=== PATIENT | female | born 1975 ===

== ENCOUNTER 2024-01-16 21:53 | Inpatient (IN) | payer OTHER ==
[~2024-01-16] VITALS: Ht 162.6 cm; Wt 46.5 kg
[2024-01-16 23:07] LABS: BASOPHILS ABSOLUTE AUTO 0.03 K/mm3 (0.00-0.23); BASOPHILS PERCENT AUTO 0 % (0-2); EOSINOPHILS ABSOLUTE AUTO 0.13 K/mm3 (0.00-0.68); EOSINOPHILS PERCENT AUTO 1 % (0-6); Hematocrit 36.3 % (33.0-51.0); Hemoglobin 11.8 g/dL (11.5-16.0); IMMATURE GRAN ABSOLUTE AUTO 0.07 K/mm3 (0.00-0.10); IMMATURE GRAN PERCENT AUTO 1 % (0-1); LYMPHOCYTES ABSOLUTE AUTO 1.47 K/mm3 (0.84-5.20); LYMPHOCYTES PERCENT AUTO 10 % (21-46); MONOCYTES ABSOLUTE AUTO 1.22 K/mm3 (0.16-1.47); MONOCYTES PERCENT AUTO 9 % (4-13); Mean Corpuscular HGB 28.4 pg (26.0-34.0); Mean Corpuscular HGB Conc 32.5 g/dL (31.5-36.5); Mean Corpuscular Volume 88 fL (80-100); Mean Platelet Volume 9.5 fL (9.1-12.4); NEUTROPHILS ABSOLUTE AUTO 11.19 K/mm3 (1.96-9.15); NEUTROPHILS PERCENT AUTO 79 % (41-73); Platelet Count 379 K/mm3 (150-400); RDW Coefficient Variation 19.7 % (11.7-14.2); RDW Standard Deviation 62.8 fL (35.1-46.3); Red Blood Cell Count 4.15 M/mm3 (3.80-5.20); White Blood Cell Count 14.11 K/mm3 (4.00-11.30)
[2024-01-16 23:31] LABS: Source, Urine Clean Catch
[2024-01-16 23:42] LABS: Albumin, Blood 3.4 g/dL (3.4-5.0); Albumin/Globulin Ratio 0.6 (0.8-1.8); Bilirubin, Total 0.5 mg/dL (0.1-1.0); Bun/Creatinine Ratio 13.2 (12.0-20.0); Calcium, Blood 8.5 mg/dL (8.5-10.1); Creatinine, Blood 1.9 mg/dL (0.40-1.00); Globulin, Blood 5.9 g/dL (2.2-4.0); Potassium, Blood 2.8 mmol/L (3.5-5.5); Total Protein, Blood 9.3 g/dL (6.4-8.2)
[2024-01-16] MEDS ORDERED: NS 1,000 ML IV SCH (23:50)
[2024-01-16 23:51] LABS: Appearance, Urine Hazy (Clear); Bilirubin, Urine Neg (Neg); Blood, Urine 5+ (Neg); Color, Urine Yellow (P-Yellow); Glucose Qualitative, Urine Neg (Neg); Ketones, Urine Neg (Neg); Leukocyte Esterase, Urine 3+ (Neg); Nitrite, Urine Neg (Neg); Protein, Urine 3+ (Neg); Specific Gravity, Urine 1.015 (1.003-1.022); Urobilinogen, Urine NORM (Normal)
[2024-01-17 00:12] LABS: Bacteria Many /hpf; Red Blood Cells, Urine 25-50 /hpf (0-2); Squamous Epithelial Cells Few /hpf (Few); White Blood Cells, Urine 50-100 /hpf (0-5)
[2024-01-17] MEDS ORDERED: Potassium Chloride 20 MEQ/15 ML UDC PO ONE (01:15)
[2024-01-17] MEDS ORDERED: CefTRIAXone Sodium 1,000 MG in NS 50 ML IV ONE (01:15)
[2024-01-17] MEDS ORDERED: Acetaminophen 325 MG TABLET PO PRN (02:20)
[2024-01-17] MEDS ORDERED: FentaNYL Citrate 50 MCG/ML 2 ML Injection IV PRN (02:20)
[2024-01-17] MEDS ORDERED: Ondansetron HCl 2 MG / ML 2ML Vial IV PRN (02:20)
[2024-01-17] MEDS ORDERED: Sodium Bicarb 8.4% Inj 75 MEQ in Sodium Chloride 0.45% 1,000 ML IV SCH (02:25)
[2024-01-17] MEDS ORDERED: SODBIC650 PO ×2 (04:20→12:28)
[2024-01-17] MEDS ORDERED: POTCIT10 PO (04:20)
[2024-01-17 04:21] VITALS: BP 111/83
[2024-01-17] MEDS ORDERED: GABA100 PO (04:21)
[2024-01-17] MEDS ORDERED: VENL25 PO (04:21)
[2024-01-17] MEDS ORDERED: FISH OIL 1,0001 EA10 PO (04:22)
[2024-01-17] MEDS ORDERED: ENSURE ORIGINA237 M1 PO (04:23)
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
[2024-01-17] MEDS ORDERED: Potassium Chloride 20 MEQ TabCR PO ONE ×2 (07:10→17:00)
[2024-01-17 07:41] VITALS: BP 121/82
[2024-01-17] MEDS ORDERED: Lactated Ringer's 1,000 ML IV SCH (08:00)
--- NOTE | 2024-01-17 08:15 | NUR ---
SPOKE WITH ER MINT MACHINE OPERATOR REGARDING THIS PATIENT, RECEIVED PERMISSION FROM THE PATIENT TO SPEAK WITH [employer] POLICE, PATIENT'S DOG IN HER CAR AT THE [employer], RECIEVED PERMISSION FROM THE PATIENT TO ALLOW THE [employer] POLICE IN HER CAR AND TO SEND THE DOG TO [facility] UNTIL SHE IS DISCHARGED, SPOKE WITH OFFICER TREVOR [phone] AND RELAYED THIS INFORMATION
[2024-01-17] MEDS ORDERED: Gabapentin 100 MG Cap PO SCH (09:00)
[2024-01-17] MEDS ORDERED: Enoxaparin 30 MG/0.3 ML SYR SC SCH (09:00)
[2024-01-17] MEDS ORDERED: Lactobacil 2-S.Thermo-Bifido 1 1 Cap PO SCH (09:00)
--- NOTE | 2024-01-17 11:07 | NUR ---
"Spiritual care | Pt. request/referral Pt. is resting in bed, but responds when I come to bedside. The pt. displays evidence of bein guarded at first, but as we considered matters of troy and belief, Pt. displayed evidence of trust. As this was an introductory visit, the census enumerator asked the Pt. if she felt safe here, and the Pt. verbalized that she did feel safe. Prayed with Pt. pt. verbalized gratitude for the spiritual care visit, and welcomed this census enumerator to return."
[2024-01-17 11:48] LABS: BASOPHILS ABSOLUTE AUTO 0.04 K/mm3 (0.00-0.23); BASOPHILS PERCENT AUTO 0 % (0-2); EOSINOPHILS ABSOLUTE AUTO 0.09 K/mm3 (0.00-0.68); EOSINOPHILS PERCENT AUTO 1 % (0-6); Hematocrit 34.3 % (33.0-51.0); Hemoglobin 11.1 g/dL (11.5-16.0); IMMATURE GRAN ABSOLUTE AUTO 0.05 K/mm3 (0.00-0.10); IMMATURE GRAN PERCENT AUTO 0 % (0-1); LYMPHOCYTES ABSOLUTE AUTO 1.24 K/mm3 (0.84-5.20); LYMPHOCYTES PERCENT AUTO 10 % (21-46); MONOCYTES ABSOLUTE AUTO 1.15 K/mm3 (0.16-1.47); MONOCYTES PERCENT AUTO 10 % (4-13); Mean Corpuscular HGB 28.6 pg (26.0-34.0); Mean Corpuscular HGB Conc 32.4 g/dL (31.5-36.5); Mean Corpuscular Volume 88 fL (80-100); Mean Platelet Volume 10.2 fL (9.1-12.4); NEUTROPHILS ABSOLUTE AUTO 9.33 K/mm3 (1.96-9.15); NEUTROPHILS PERCENT AUTO 78 % (41-73); Platelet Count 322 K/mm3 (150-400); RDW Coefficient Variation 19.9 % (11.7-14.2); RDW Standard Deviation 63.3 fL (35.1-46.3); Red Blood Cell Count 3.88 M/mm3 (3.80-5.20)
[2024-01-17 11:59] LABS: Albumin, Blood 2.7 g/dL (3.4-5.0); Albumin/Globulin Ratio 0.6 (0.8-1.8); Bilirubin, Total 0.3 mg/dL (0.1-1.0); Bun/Creatinine Ratio 13.6 (12.0-20.0); Calcium, Blood 7.8 mg/dL (8.5-10.1); Creatinine, Blood 1.62 mg/dL (0.40-1.00); Globulin, Blood 4.9 g/dL (2.2-4.0); Potassium, Blood 3.2 mmol/L (3.5-5.5); Total Protein, Blood 7.6 g/dL (6.4-8.2)
[2024-01-17] MEDS ORDERED: Bentyl10 MG PO (12:20)
[2024-01-17] MEDS ORDERED: SYMBICORT 80-10.2 GM PO (12:23)
[2024-01-17] MEDS ORDERED: LIDO700A20 TOP (12:23)
[2024-01-17] MEDS ORDERED: ALBU90OI INH (12:25)
[2024-01-17] MEDS ORDERED: B-100 COMPLEX100 MG PO (12:27)
[2024-01-17] MEDS ORDERED: POTA10T PO (12:27)
[2024-01-17] MEDS ORDERED: CALCIUM 600 +1 EA11 PO (12:29)
[2024-01-17] MEDS ORDERED: TIOT18 INH (12:29)
[2024-01-17] MEDS ORDERED: MULTIPLE VITAM1 EACH PO (12:31)
--- NOTE | 2024-01-17 12:32 | NUR ---
MEDICATION LIST FROM [facility] RECEIVED VIA FAX. UPDATED HOME MEDICATION LIST AND NOTIFIED
[2024-01-17] MEDS ORDERED: CefTRIAXone Sodium 1,000 MG in NS 100 ML IV SCH (15:00)
[2024-01-17 16:50] VITALS: BP 122/80
--- NOTE | 2024-01-17 19:55 | NUR ---
SHIFT SUMMARY: PT IS A/O X4, SBA/IND IN ROOM, PLEASANT AND COOPERATIVE WITH CARE. PT DOES BECOME TEARFUL AT TIMES WHEN DISCUSSING HER SITUATION. PT URINATING WELL THROUGHOUT THE SHIFT. NO CONCERNS FOR URINARY RETENTION. PT REPORTS FLANK PAIN TOLERABLE THROUGHOUT THE DAY. TYLENOL GIVEN FOR A HEADACHE THIS AFTERNOON WHICH WAS EFFECTIVE IN TREATING PAIN. PT CONTINUES TO HAVE IV FLUIDS LR AT 100 RUNNING. PT GIVEN DAUGHTERS PHONE NUMBER AND INSTRUCTED IF SHE WANTS DAUGHTER TO KNOW SHE IS AT HOSPITAL HOW TO CALL HER AND GIVE HER THE PASSWORD. PER PT SHE HAS NOT TALKED TO HER DAUGHTER IN SEVERAL MONTHS AND NOT SURE IF SHE WILL RESPOND. PT MADE AWARE HER DAUHTER WAS LOOKING FOR HER BUT WE COULD NOT LET HER KNOW SHE WAS HERE DUE TO HER CONFIDENTIAL STATUS. PT V/U. OFFERED ASSISTANCE IN NOTIFYING FAMILY OR FRIENDS AND SHE DECLINED OFFER.
[2024-01-17 20:54] VITALS: BP 114/74
[2024-01-18 04:49] VITALS: BP 126/86
[2024-01-18 05:11] LABS: BASOPHILS ABSOLUTE AUTO 0.04 K/mm3 (0.00-0.23); BASOPHILS PERCENT AUTO 0 % (0-2); EOSINOPHILS ABSOLUTE AUTO 0.09 K/mm3 (0.00-0.68); EOSINOPHILS PERCENT AUTO 1 % (0-6); Hemoglobin 11.1 g/dL (11.5-16.0); IMMATURE GRAN ABSOLUTE AUTO 0.05 K/mm3 (0.00-0.10); IMMATURE GRAN PERCENT AUTO 1 % (0-1); LYMPHOCYTES ABSOLUTE AUTO 1.46 K/mm3 (0.84-5.20); LYMPHOCYTES PERCENT AUTO 14 % (21-46); MONOCYTES ABSOLUTE AUTO 1.04 K/mm3 (0.16-1.47); MONOCYTES PERCENT AUTO 10 % (4-13); Mean Corpuscular HGB 28.5 pg (26.0-34.0); Mean Corpuscular HGB Conc 32.6 g/dL (31.5-36.5); Mean Corpuscular Volume 87 fL (80-100); Mean Platelet Volume 10.1 fL (9.1-12.4); NEUTROPHILS ABSOLUTE AUTO 7.57 K/mm3 (1.96-9.15); NEUTROPHILS PERCENT AUTO 74 % (41-73); Platelet Count 305 K/mm3 (150-400); RDW Standard Deviation 63.8 fL (35.1-46.3); Red Blood Cell Count 3.89 M/mm3 (3.80-5.20); White Blood Cell Count 10.25 K/mm3 (4.00-11.30)
[2024-01-18 05:32] LABS: Bun/Creatinine Ratio 11.9 (12.0-20.0); Calcium, Blood 7.5 mg/dL (8.5-10.1); Creatinine, Blood 1.59 mg/dL (0.40-1.00); Potassium, Blood 3.4 mmol/L (3.5-5.5)
--- NOTE | 2024-01-18 06:54 | NUR ---
SHIFT SUMMARY: NO ACUTE EVENTS. STATED PAIN WAS WELL CONTROLLED THIS SHIFT EVEN THOUGH NO PAIN MEDS GIVEN. NO EVENTS ON TELEMETRY, SR 80'S. GETTING UP TO BSC INDEPENDENTLY, EASIER FOR HER D/T URGENCY AND FREQUENCY. ON ROOM AIR; C/O FEELING SOB AND REQUESTED BREATHING TX, BUT LUNGS WERE CLEAR THROUGHOUT. POSSIBLY R/T ANXIETY SHE APPEARED TO BE ON THE VERGE OF TEARS AT THE TIME.
[2024-01-18 07:43] VITALS: BP 118/76
[2024-01-18] MEDS ORDERED: Albuterol HFA200 ACT/6.7 GM INH INH PRN (07:50)
[2024-01-18] MEDS ORDERED: Mometasone/Formoterol MDI 200/5 mcg 13 GM INH SCH (07:55)
[2024-01-18] MEDS ORDERED: Potassium Chloride 10 Meq Tablet SA PO SCH (08:00)
[2024-01-18] MEDS ORDERED: Tiotropium Bromide 2.5 MCG/ACT MIST INHAL (10 ACT/4 GM) INH SCH (08:00)
[2024-01-18] MEDS ORDERED: Lidocaine 4% 1 Patch TOP PRN (08:00)
[2024-01-18] MEDS ORDERED: Vitamin B Complex 1 EA Softgel PO SCH (09:00)
[2024-01-18] MEDS ORDERED: Multivitamins/Minerals TAB PO SCH (09:00)
[2024-01-18] MEDS ORDERED: Venlafaxine HCl 75 MG CapCR PO SCH (09:00)
[2024-01-18] MEDS ORDERED: Docosahexanoic Acid/EPA 1,000 MG CAP PO SCH (09:00)
[2024-01-18] MEDS ORDERED: Calcium/Vit D 600 mg-400 Unit Tab PO SCH (09:00)
[2024-01-18] MEDS ORDERED: Sodium Bicarbonate 650 MG Tab PO SCH (09:00)
--- NOTE | 2024-01-18 12:57 | NUR ---
THIS RN COVERING FOR PRIMARY RN FOR LUNCH BREAK
[2024-01-18 14:34] LABS: Bun/Creatinine Ratio 13.8 (12.0-20.0); Calcium, Blood 7.4 mg/dL (8.5-10.1); Creatinine, Blood 1.38 mg/dL (0.40-1.00); Potassium, Blood 2.9 mmol/L (3.5-5.5)
[2024-01-18 14:40] VITALS: BP 127/81
[2024-01-18] MEDS ORDERED: Potassium Chloride 20 MEQ TabCR PO ONE (15:00)
--- NOTE | 2024-01-18 17:45 | NUR ---
SHIFT SUMMARY: PATIENT A/OX4, CALM, PLEASANT AND COOPERATIVE c CARE. PATIENT DENIES CP/PRESSURE, N/V, DIZZINESS AND SOB. NO EVENTS ON TELE, SR HR IN THE 80'S BPM c OCCASIONAL BBB. 2.9 REPEAT K THIS PM, RECEIVED OT DOSE K PO AND SCHEDULED MEDS PER EMAR. PATIENT HAS GREAT APPETITE, CONT/INCON OF BOWEL/BLADDERS, AMBULATES TO BATHROOM INDEPENDENTLY T/O SHIFT. PATIENT HAD SHOWER AND LINEN CHANGED TODAY. VITAL SIGNS REVIEWED. CALL LIGHT IN REACH.
[2024-01-18 19:07] VITALS: BP 126/81
[2024-01-19 04:25] VITALS: BP 123/87
[2024-01-19 04:54] LABS: BASOPHILS ABSOLUTE AUTO 0.05 K/mm3 (0.00-0.23); BASOPHILS PERCENT AUTO 1 % (0-2); EOSINOPHILS ABSOLUTE AUTO 0.19 K/mm3 (0.00-0.68); EOSINOPHILS PERCENT AUTO 3 % (0-6); Hematocrit 32.6 % (33.0-51.0); Hemoglobin 10.8 g/dL (11.5-16.0); IMMATURE GRAN ABSOLUTE AUTO 0.04 K/mm3 (0.00-0.10); IMMATURE GRAN PERCENT AUTO 1 % (0-1); LYMPHOCYTES ABSOLUTE AUTO 1.72 K/mm3 (0.84-5.20); LYMPHOCYTES PERCENT AUTO 23 % (21-46); MONOCYTES ABSOLUTE AUTO 1.09 K/mm3 (0.16-1.47); MONOCYTES PERCENT AUTO 14 % (4-13); Mean Corpuscular HGB 28.3 pg (26.0-34.0); Mean Corpuscular HGB Conc 33.1 g/dL (31.5-36.5); Mean Corpuscular Volume 86 fL (80-100); Mean Platelet Volume 9.7 fL (9.1-12.4); NEUTROPHILS PERCENT AUTO 59 % (41-73); Platelet Count 306 K/mm3 (150-400); RDW Coefficient Variation 19.9 % (11.7-14.2); Red Blood Cell Count 3.81 M/mm3 (3.80-5.20); White Blood Cell Count 7.59 K/mm3 (4.00-11.30)
[2024-01-19 05:43] LABS: Bun/Creatinine Ratio 17.6 (12.0-20.0); Calcium, Blood 7.8 mg/dL (8.5-10.1); Creatinine, Blood 1.25 mg/dL (0.40-1.00); Potassium, Blood 3.2 mmol/L (3.5-5.5)
--- NOTE | 2024-01-19 07:32 | NUR ---
SHIFT SUMMARY: NO ACUTE EVENTS. C/O NAUSEA AND LOW BACK PAIN THIS MORNING; MEDICATED PER EMAR. NO EVENTS ON TELEMETRY, SR 70-80'S. GETTING UP TO BR, IS INDEPENDENT IN ROOM. SLEPT ALL NIGHT.
[2024-01-19 07:55] VITALS: BP 118/81
[2024-01-19] MEDS ORDERED: Potassium Chloride 20 MEQ TabCR PO ONE (08:00)
[2024-01-19 15:03] VITALS: BP 129/85
--- NOTE | 2024-01-19 16:44 | NUR ---
SHIFT SUMMARY: PATIENT A/OX4, PLEASANT AND COOPERATIVE c CARE. PATIENT DENIES CP/PRESSURE, SOB, N/V AND DIZZINESS. NO EVENT ON TELE, SR HR IN THE 70'S BPM. PATIENT HAS GREAT APPETITE, CONTINENT OF BOWEL/BLADDER, AMBULATES TO BATHROOM INDEPENDENTLY T/O SHIFT. PATIENT RECEIVED SCHEDULED MEDS PER EMAR. VITAL SIGNS REVIEWED. PATIENT REPORTS WOULD LIKE TO BE DISCHARGE TODAY, STATED "I'M WORRIED ABOUT MY APARTMENT IF I DON'T GET DISCHARGE TODAY MY [employer] WILL CHARGE ME THE FULL MONTH RENT OF $750 TOMORROW. MY SON WILL COME AND GET ME TODAY AND DROVE ME BACK TO [employer] [facility] SO, I CAN PACKED ALL MY BELONGINGS OUT MY APARTMENT. I DON'T HAVE A CHOICE." NOTIFIED DR. SNYDER c PATIENT REQUEST. DR. SNYDER CAME AND SPOKE c PATIENT. PER DR. SNYDER PATIENT IS NOT MEDICALLY STABLE TO GO HOME AND HE IS NOT DISCHARGING HER. PATIENT IS AWARE OF RISK AND BENIFITS OF LEAVING THE HOSPITAL, BUT STILL DETERMINE TO LEAVE AMA WHEN SON ARRIVED, PATIENT STATED MY SON WILL BE HERE AT "AROUND 6:00 PM OR SO." AMA FORMED SIGNED AND PLACED IN FRONT OF PATIENT CHART. PATIENT LAYING IN BED RESTING AWAITING FOR SON TO PICK HER UP. CALL LIGHT IN REACH.
--- NOTE | 2024-01-19 19:10 | NUR ---
OBTAINED REPORT FROM PAT LÓPEZ. PT SON CAME TO ROOM, PT LEFT AMA ON FOOT AT 1907. ALL BELONGINGS WITH PT. CHARGE NURSE NOTIFIED.
== END 2024-01-19 19:10 | disposition left against medical advice (07) | DRG 683 ==
LOC: ER 21:53 → MEDS 01-17 02:14
PROVIDERS: Emergency Medicine; Student in an Organized Health Care Education/Training Program; ADMIT Internal Medicine
DX: N17.9 Acute kidney failure, unspecified (principal); E87.20 Acidosis, unspecified; N12 Tubulo-interstitial nephritis, not specified as acute or chronic; E87.6 Hypokalemia; N25.89 Other disorders resulting from impaired renal tubular function; F39 Unspecified mood [affective] disorder; E86.0 Dehydration; F32.A Depression, unspecified; J45.909 Unspecified asthma, uncomplicated; F41.9 Anxiety disorder, unspecified; G62.9 Polyneuropathy, unspecified; Z53.29 Procedure and treatment not carried out because of patient's decision for other reasons; Z87.442 Personal history of urinary calculi
CPT/HCPCS: 36415; 74176; 80048; 80053; 81001; 83605; 85025; 87077; 87086; 87186; 94640; 94664; 94760; 99285-25; A9270; J0696; J1650; J2405; J7030; J7120